=== PATIENT | male | born 1980 | race Caucasian/White ===

== ENCOUNTER 2016-11-26 13:41 | Outpatient (CLI) | payer OTHER ==
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
== END 2016-11-26 13:42 | disposition home or self-care (01) ==
LOC: DI 13:41
PROVIDERS: ATTEND General Practice
DX: M25.512 Pain in left shoulder (principal)